=== PATIENT | female | born 1985 | race Caucasian/White ===

== ENCOUNTER 2016-06-03 23:25 | Emergency (ER) | payer MEDICAID ==
[~2016-06-03] VITALS: Ht 154.9 cm; Wt 52.3 kg
[2016-06-03 23:41] VITALS: BP 132/69
--- NOTE | 2016-06-04 02:47 | NUR ---
AMBULATED TO ER BED 6
--- NOTE | 2016-06-04 02:56 | NUR ---
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 PT STATES NO MED HX. DENIES N/V/D; SKIN IS PINK/WARM/DRY; AAOX4 WITH EVEN AND STEADY GAIT; LUNGS CLEAR BL; HR EVEN AND REGULAR; PT DENIES ANY FEVER, CP, SOB, OR COUGH AT THIS TIME; PATIENT STATES PAIN OF 10/10 AT THIS TIME; VSS; PATIENT POSITIONED FOR COMFORT; HOB ELEVATED; BEDRAILS UP X2; BED DOWN. ER MD MADE AWARE OF PT STATUS.
[2016-06-04] MEDS ORDERED: HYDROcodone/APAP 10/325 MG 1 TAB TAB PO ONE (03:35)
[2016-06-04] MEDS ORDERED: LIDOCAINE/EPI 2% 1:100000 20 ML VIAL INJ ONE (03:35)
[2016-06-04] MEDS ORDERED: SULFAMETH/TRIMETH DS 800/160MG 1 TAB PO ONE (03:40)
[2016-06-04] MEDS ORDERED: CEPHALEXIN 500 MG CAP PO ONE (03:40)
[2016-06-04 04:52] VITALS: BP 118/59
--- NOTE | 2016-06-04 04:53 | NUR ---
Patient discharged with v/s stable. Written and verbal after care instructions given and explained. Patient alert, oriented and verbalized understanding of instructions. Ambulatory with steady gait. All questions addressed prior to discharge. ID band removed. Patient advised to follow up with PMD. Rx of BACTRIM, MOTRIN, NORCO, KEFLEX given. Patient educated on indication of medication including possible reaction and side effects. Opportunity to ask questions provided and answered.
== END 2016-06-04 04:52 | disposition home or self-care (01) ==
LOC: MED 23:25
DX: L03.116 Cellulitis of left lower limb (principal); Z88.0 Allergy status to penicillin
CPT/HCPCS: 10061; 99284; J2001

== ENCOUNTER 2017-04-06 12:07 | Emergency (ER) | payer MEDICAID ==
[~2017-04-06] VITALS: Ht 154.9 cm; Wt 54.5 kg
--- NOTE | 2017-04-06 12:27 | NUR ---
patient arrived to er via private vehicle for c/o right knee pain 10/07 x two days. patient denies any falls, or trauma to area. no redness, swelling or warmth noted to right knee. tender when touched. patient states in able to move her knee, however, when she brings her knee up pain increases. awaiting md er yefri.
--- NOTE | 2017-04-06 12:34 | NUR ---
radiology in patient's room
[2017-04-06] MEDS ORDERED: IBUPROFEN 400 MG TAB PO ONE (13:35)
== END 2017-04-06 13:45 | disposition home or self-care (01) ==
LOC: MED 12:07
DX: M25.561 Pain in right knee (principal); Z71.6 Tobacco abuse counseling; Z88.0 Allergy status to penicillin
CPT/HCPCS: 73562; 99284